=== PATIENT | female | born 2000 | race Caucasian/White ===

== ENCOUNTER 2022-09-03 11:11 | Emergency (ER) | payer OTHER, SELFPAY ==
[2022-09-03 11:19] VITALS: BP 141/88; PULSE 101; RESP 16; TEMP 36.6; O2SAT 100; BMI 33.3
--- NOTE | 2022-09-03 11:21 | [facility].EDGENADL ---
Discharge Plan Disposition Patient Disposition: Home, Self-Care Prescriptions Prescriptions: New ibuprofen 800 mg tablet 800 mg PO TID PRN (Reason: pain) 7 Days Qty: 20 0RF ondansetron 4 mg tablet,disintegrating 4 mg PO Q6H PRN (Reason: nausea and vomiting) 5 Days Qty: 20 0RF cyclobenzaprine 5 mg tablet 5 mg PO TID PRN (Reason: muscle spasm) 5 Days Qty: 15 0RF No Action norethindrone ac-eth estradiol [07/02 ()] 1-20 mg-mcg tablet 1 tab PO DAILY Qty: 21 11RF Referrals Follow up/Referrals: Provider,Referral, MD [Primary Care Provider] - See instructions Activity Restrictions/Add. Instructions Additional Instructions/Restrictions: Your symptoms today are consistent with a focal trapezius strain on the left side please return with any evidence of infection redness masses neurologic symptoms as discussed. Clinical Impressions Clinical Impression: Strain of trapezius muscle Instructions Patient Instructions: DI for Neck Pain Discharge ED Provider: Kobe Morgan General Adult HPI General Chief complaint: Neck Pain/Injury Stated complaint: neck pain, nausea, no accident Time Seen by Provider: 09/03/22 11:21 History of Present Illness HPI narrative: 21-year-old female presenting with left lateral and posterior neck pain which is nontraumatic in nature. States that she was getting her eyelashes done yesterday and had to sit in a stable location in a supine position for 2 straight hours but no other obvious strenuous or traumatic injury. She denies any neurologic symptoms specifically any changes in vision changes in coordination or changes in upper extremity weakness or sensation. Denies any chest pain or shortness of breath. Denies any infectious symptoms preceding this. States that other than focal pain and stiffness in the left lateral aspect of her neck she feels well. She is only taken Tylenol prior to arrival today. She has had a little bit of nausea associate with the pain Related Data Previous Rx's Medication Instructions Recorded norethindrone acetate 1 mg-ethinyl 1 tab PO DAILY #21 tabs 07/11/20 estradiol 20 mcg tablet () cyclobenzaprine 5 mg tablet 5 mg PO TID PRN muscle spasm 5 09/03/22 days #15 tabs ibuprofen 800 mg tablet 800 mg PO TID PRN pain 7 days #20 09/03/22 tabs ondansetron 4 mg disintegrating 4 mg PO Q6H PRN nausea and 09/03/22 tablet vomiting 5 days #20 tabs Allergies Allergy/AdvReac Type Severity Reaction Status Date / Time No Known Allergies Allergy Verified 07/11/20 09:15 [facility] Disclaimer: The information contained in this section may have been updated after the patient was seen, as this information can be updated by other users. Social History Smoking Status: Former smoker alcohol intake: never substance use type: denies use current occupational status: student Travel in the last 8 weeks: None ROS Obtained: Yes All systems reviewed & no additional complaints except as documented Physical Exam General General appearance: alert and in no apparent distress Head Head exam: other (Flexed laterally to the right) ENT ENT exam: Present normal exam, normal oropharynx and other (No masses lymphadenopathy felt no erythema or warmth of the left lateral aspect of the neck there is focal tenderness on the trapezius muscle body extending in the paraspinal muscular area down through the trapezius and the superior aspect of her shoulder.) Neck Neck exam: Present tenderness (No midline tenderness); Absent lymphadenopathy Chest Chest inspection: Present normal inspection and symmetric chest wall rise Respiratory Respiratory exam: Absent respiratory distress Cardiovascular Cardiovascular exam: Present regular rate; Absent tachycardia Neurological Exam Neurological exam: Present alert and other (Upper extremity motor and sensory exam normal) Medical Decision Making Rufino Inquiry Pt receiving controlled substance: No Vital
[2022-09-03 11:30] VITALS: BP 148/77; PULSE 86; O2SAT 99
[2022-09-03 12:16] VITALS: BP 148/77; PULSE 86; RESP 16; TEMP 36.6; O2SAT 99
== END 2022-09-03 12:18 | disposition home or self-care (01) ==
PROVIDERS: Emergency Provider Student in an Organized Health Care Education/Training Program
DX: S46.812A Strain of other muscles, fascia and tendons at shoulder and upper arm level, left arm, initial encounter (principal); X50.0XXA Overexertion from strenuous movement or load, initial encounter; R11.0 Nausea
CPT/HCPCS: 99283